=== PATIENT | male | born 1955 | race Caucasian/White ===

== ENCOUNTER 2020-08-22 15:06 | Emergency (ER) | payer SELFPAY ==
--- NOTE | 2020-08-22 15:26 | EDM.PDOC ---
ED HPI GENERAL MEDICAL PROBLEM - General Chief Complaint: General Stated Complaint: GROWTH ON GROIN, CONFUSION Time Seen by Provider: 08/22/20 15:15 Source of Information: Reports: Patient, Family, RN, RN Notes Reviewed History Limitations: Reports: Altered Mental Status - History of Present Illness INITIAL COMMENTS - FREE TEXT/NARRATIVE: Patient is a 65-year-old male who presents to ER with complaint of swelling and tenderness to the scrotum. Patient states it began 3 to 4 days ago. Patient is lethargic and weak. States he had chills a couple days ago. Denies any nausea, vomiting. States he had diarrhea a few days ago prior to the onset of a scrotal abscess which he states was explosive. Patient denies any health problems, denies smoking, denies alcohol use. Patient has a foul odor coming from the groin. With visiting with the son further, the son lives in [place] has come to [place] about 3 days ago because he knew his father was not well. Father had told him that he had appointment set up, and that he was supposed to have surgery on Tuesday. Son states he thinks his father was delirious as he is not found anywhere where he is to have an appointment or surgery. Son does state that the patient has been declining over the past month, losing weight, and generally looking unwell. 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 Onset: Gradual Scrotum Pain Score (Numeric/FACES): 10 - Related Data Allergies Allergy/AdvReac Type Severity Reaction Status Date / Time No Known Allergies Allergy Verified 08/22/20 15:16 Home Meds: Home Meds . [No Known Home Meds] 08/22/20 [History] Social & Family History - Tobacco Use Tobacco Use Status *Q: Never Tobacco User - Recreational Drug Use Recreational Drug Use: No ED ROS GENERAL - Review of Systems Review Of Systems: Comprehensive ROS is negative, except as noted in HPI. ED EXAM, GENERAL - Physical Exam Exam: See Below Exam Limited By: Altered Mental Status General Appearance: Alert, WD/WN, Lethargic, Moderate Distress Eye Exam: Bilateral Eye: EOMI, Normal Inspection Ears: Normal External Exam, Hearing Grossly Normal Nose: Normal Inspection Throat/Mouth: Normal Inspection, Normal Voice, No Airway Compromise Head: Atraumatic, Normocephalic Neck: Normal Inspection, Supple, Non-Tender, Full Range of Motion Respiratory/Chest: No Respiratory Distress, Lungs Clear, Normal Breath Sounds, No Accessory Muscle Use, Chest Non-Tender Cardiovascular: Normal Peripheral Pulses, Regular Rate, Rhythm, No Edema, No Gallop, No JVD, No Murmur, No Rub Peripheral Pulses: 2+: Radial (L), Radial (R) GI/Abdominal: Normal Bowel Sounds, Soft, Non-Tender (Male) Exam: Deferred Rectal (Males) Exam: Other (Very large scrotal abscess, gangrenous, black in color, foul odor) Back Exam: Normal Inspection, Full Range of Motion, NT Extremities: Normal Inspection, Normal Range of Motion, Non-Tender, Normal Capillary Refill, No Pedal Edema Neurological: Alert, No Motor/Sensory Deficits Psychiatric: Normal Affect, Normal Mood Skin Exam: Warm, Dry, Intact, Normal Color, No Rash Lymphatic: No Adenopathy Course - Vital Signs Last Recorded V/S: Last Vital Signs Temp 97.9 F 08/22/20 15:17 Pulse 92 08/22/20 15:17 Resp 16 08/22/20 15:17 BP 116/76 08/22/20 15:17 Pulse Ox 98 08/22/20 15:17 - Orders/Labs/Meds Orders: Active Orders 24 hr Category Date Time Status CBC WITH AUTO DIFF [HEME] Stat Lab 08/22/20 15:23 Results CULTURE BLOOD [BC] Stat Lab 08/22/20 15:23 Received CULTURE BLOOD [BC] Stat Lab 08/22/20 15:30 Received DRUG SCREEN URINE BIORAD [URCHEM] Stat Lab 08/22/20 15:14 Ordered MANUAL DIFFERENTIAL QA/NC [HEME] Stat Lab 08/22/20 15:23 Results REFLEX LACTIC ACID YES OR NO [CHEM] Routine Lab 08/22/20 16:16 Received UA W/MANISH RFLX IF INDICATED [URIN] Stat Lab 08/22/20 15:15 Ordered Sodium Chloride 0.9% [Normal Saline] 1,000 ml Med 08/22/20 15:53 Active IV .BOLUS Blood Culture x2 Reflex Set [OM.PC] Stat Oth 08/22/20 15:14 Ordered Medication Orders Sodium Chloride (Normal Saline) 1,000 mls @ 999 mls/hr IV .BOLUS ONE Stop: 08/22/20 16:53 Last Admin: 08/22/20 16:00 Dose: 999 mls/hr Documented by: ERIK Labs: Laboratory Tests 08/22/20 08/22/20 08/22/20 Range/Units 15:22 15:23 15:23 WBC 26.7 H* (5.0-10.0) 10^3/uL RBC 5.27 (4.6-6.2) 10^6/uL Hgb 13.5 L (14.0-18.0) g/dL Hct 41.7 (40.0-54.0) % MCV 79.1 L (80-100) fL MCH 25.6 L (27.0-34.0) pg MCHC 32.4 L (33.0-35.0) g/dL Plt Count 444 (150-450) 10^3/uL Neut % (Auto) 84.9 H (42.2-75.2) % Lymph % (Auto) 8.3 L (20.5-50.1) % [place] % (Auto) 6.3 (2-8) % Eos % (Auto) 0.0 L (1.0-3.0) % Baso % (Auto) 0.5 (0.0-1.0) % Add Manual Diff Yes Sodium 134 L (136-145) mmol/L Potassium 3.8 (3.5-5.1) mmol/L Chloride 90 L (98-107) mmol/L Carbon Dioxide 20 L (21-32) mmol/L Anion Gap 27.8 H (7-13) mEq/L BUN 67 H (7-18) mg/dL Creatinine 1.53 H (0.70-1.30) mg/dL Est Cr Clr Drug Dosing 52.13 mL/min Estimated GFR (MDRD) 46 BUN/Creatinine Ratio 43.8 (No establ ref range) Glucose 558 H* (70-99) mg/dL Lactic Acid (0.4-2.0) mmol/L Calcium 8.8 (8.5-10.1) mg/dL Total Bilirubin 0.6 (0.2-1.0) mg/dL AST 7 L (15-37) U/L ALT 13 L (16-63) U/L Alkaline Phosphatase 153 H (46-116) U/L C-Reactive Protein 42.1 H (0.0-0.9) mg/dL Total Protein 7.7 (6.4-8.2) g/dL Albumin 2.1 L (3.4-5.0) g/dL Globulin 5.6 Albumin/Globulin Ratio 0.38 Ethyl Alcohol < 3 (0) mg/dL SARS-CoV-2 RNA (PAULO) Negative (NEGATIVE) 08/22/20 Range/Units 15:23 WBC (5.0-10.0) 10^3/uL RBC (4.6-6.2) 10^6/uL Hgb (14.0-18.0) g/dL Hct (40.0-54.0) % MCV (80-100) fL MCH (27.0-34.0) pg MCHC (33.0-35.0) g/dL Plt Count (150-450) 10^3/uL Neut % (Auto) (42.2-75.2) % Lymph % (Auto) (20.5-50.1) % [place] % (Auto) (2-8) % Eos % (Auto) (1.0-3.0) % Baso % (Auto) (0.0-1.0) % Add Manual Diff Sodium (136-145) mmol/L Potassium (3.5-5.1) mmol/L Chloride (98-107) mmol/L Carbon Dioxide (21-32) mmol/L Anion Gap (7-13) mEq/L BUN (7-18) mg/dL Creatinine (0.70-1.30) mg/dL Est Cr Clr Drug Dosing mL/min Estimated GFR (MDRD) BUN/Creatinine Ratio (No establ ref range) Glucose (70-99) mg/dL Lactic Acid 2.3 H* (0.4-2.0) mmol/L Calcium (8.5-10.1) mg/dL Total Bilirubin (0.2-1.0) mg/dL AST (15-37) U/L ALT (16-63) U/L Alkaline Phosphatase (46-116) U/L C-Reactive Protein (0.0-0.9) mg/dL Total Protein (6.4-8.2) g/dL Albumin (3.4-5.0) g/dL Globulin Albumin/Globulin Ratio Ethyl Alcohol (0) mg/dL SARS-CoV-2 RNA (PAULO) (NEGATIVE) Meds: Medications Generic Name Dose Route Start Last Admin Trade Name Irma PRN Reason Stop Dose Admin Sodium Chloride 1,000 mls @ 999 mls/hr 08/22/20 15:53 08/22/20 16:00 Normal Saline IV 08/22/20 16:53 999 mls/hr .BOLUS ONE Administration Discontinued Medications Generic Name Dose Route Start Last Admin Trade Name Irma PRN Reason Stop Dose Admin Fentanyl 50 mcg 08/22/20 15:42 08/22/20 15:48 Fentanyl 100 Mcg/2 Ml Sdv IVPUSH 08/22/20 15:43 50 mcg ONETIME ONE Administration Piperacillin Sod/Tazobactam 100 mls @ 200 mls/hr 08/22/20 15:57 08/22/20 16:10 Sod 3.375 gm/ Sodium Chloride IV 08/22/20 16:26 200 mls/hr ONETIME ONE Administration - Re-Assessments/Exams Free Text/Narrative Re-Assessment/Exam: 08/22/20 16:31 Discussed patient case with Dr. Garay who agreed to accept the patient for transfer to [facility]. Departure - Departure Time of Disposition: 16:33 Disposition: DC/Tfer to [facility] Condition: Poor, Serious Clinical Impression: Scrotal abscess, Hyperglycemia Sepsis Qualifiers: Sepsis type: sepsis due to unspecified organism Sepsis acute organ dysfunction status: with acute organ dysfunction Severe sepsis acute organ dysfunction type: acute renal failure Acute renal failure type: unspecified Severe sepsis shock status: without septic shock Qualified Code(s): A41.9 - Sepsis, unspecified organism; R65.20 - Severe sepsis without septic shock; N17.9 - Acute kidney failure, unspecified - Discharge Information *PRESCRIPTION DRUG MONITORING PROGRAM REVIEWED*: No *COPY OF PRESCRIPTION DRUG MONITORING REPORT IN PATIENT ANDRADE: No Forms: ED Department Discharge, Interfacility Transfer [facility] Sepsis Event Note (ED) - Evaluation Sepsis Screening Result: No Definite Risk - Focused Exam Vital Signs: Vital Signs Temp Pulse Resp BP Pulse Ox 08/22/20 15:17 97.9 F 92 16 116/76 98 - My Orders Last 24 Hours: My Active Orders 08/22/20 15:14 DRUG SCREEN URINE BIORAD [URCHEM] Stat Blood Culture x2 Reflex Set [OM.PC] Stat 08/22/20 15:15 UA W/MANISH RFLX IF INDICATED [URIN] Stat 08/22/20 15:23 CBC WITH AUTO DIFF [HEME] Stat CULTURE BLOOD [BC] Stat MANUAL DIFFERENTIAL QA/NC [HEME] Stat 08/22/20 15:30 CULTURE BLOOD [BC] Stat 08/22/20 15:53 Sodium Chloride 0.9% [Normal Saline] 1,000 ml IV .BOLUS 08/22/20 16:16 REFLEX LACTIC ACID YES OR NO [CHEM] Routine - Assessment/Plan Last 24 Hours: My Active Orders 08/22/20 15:14 DRUG SCREEN URINE BIORAD [URCHEM] Stat Blood Culture x2 Reflex Set [OM.PC] Stat 08/22/20 15:15 UA W/MANISH RFLX IF INDICATED [URIN] Stat 08/22/20 15:23 CBC WITH AUTO DIFF [HEME] Stat CULTURE BLOOD [BC] Stat MANUAL DIFFERENTIAL QA/NC [HEME] Stat 08/22/20 15:30 CULTURE BLOOD [BC] Stat 08/22/20 15:53 Sodium Chloride 0.9% [Normal Saline] 1,000 ml IV .BOLUS 08/22/20 16:16 REFLEX LACTIC ACID YES OR NO [CHEM] Routine
[2020-08-22] MEDS ORDERED: fentaNYL 100 MCG/2 ML SDV IVPUSH ONE (15:42)
[2020-08-22] MEDS ORDERED: Sodium Chloride 0.9% 1,000 ML IV ONE ×2 (15:53→16:35)
[2020-08-22] MEDS ORDERED: Piperacillin/Tazobactam 3.375 GM in Sodium Chloride 0.9% 100 ML IV ONE (15:57)
[2020-08-22 16:08] LABS: ANION GAP 27.8 mEq/L (7-13); CHLORIDE,CL 90 mmol/L (98-107); SODIUM,NA 134 mmol/L (136-145)
[2020-08-22] MEDS ORDERED: VANCOmycin 1.5 GM/300 ML 1.5 GM in Premix Bag 1 BAG IV ONE (16:35)
[2020-08-22] MEDS ORDERED: Vancomycin 1 GM SDV ONE (16:42)
== END 2020-08-22 17:06 ==
LOC: DL.ED 15:06
DX: A41.9 Sepsis, unspecified organism (principal); R65.20 Severe sepsis without septic shock; N17.9 Acute kidney failure, unspecified; R73.9 Hyperglycemia, unspecified; Z20.822 Contact with and (suspected) exposure to COVID-19
CPT/HCPCS: 36415; 80053; 80305; 80307; 81003; 83605; 85025; 86140; 87040; 87635; 96365; 96367; 96375; 99284; 99285; J2543; J3010; J3370; J7030; U0002